=== PATIENT | female | born 1950 | race Caucasian/White ===

== ENCOUNTER 2023-11-21 12:33 | Outpatient (REF) | payer MEDICARE, SELFPAY ==
--- NOTE | ~2023-11-21 | XR_ITS ---
EXAMINATION: ORBITAL FOREIGN BODY SCREENING CLINICAL INFORMATION: Pre-MRI screening. COMPARISON: None. TECHNIQUE: Three views of the orbits were obtained. FINDINGS: Three views demonstrate no radiopaque foreign bodies. XR/XR pre mri screening IMPRESSION: No metallic foreign body identified. Electronically signed by: Kg Mercado MD 11/21/2023 02:16 PM EDT RP
--- NOTE | ~2023-11-21 | MR_ITS ---
EXAMINATION: MR BRAIN WITHOUT CONTRAST CLINICAL INFORMATION: Mild cognitive impairment, speech impairment COMPARISON: None TECHNIQUE: Multiplanar multisequence MR imaging of the brain was obtained without intravenous contrast. FINDINGS: There is no acute infarct on diffusion-weighted imaging. There is no intracranial hemorrhage on iron-sensitive imaging. No extra-axial collection or mass effect/herniation. Scattered periventricular and deep white matter T2 FLAIR hyperintensities consistent with mild underlying microangiopathy. No hydrocephalus. Mild age-appropriate generalized cerebral volume loss with commensurate sulcal and ventricular prominence. The major flow voids at the skull base are preserved. The midline structures are normal. The cerebellar tonsils are normally positioned. The craniocervical junction is normal. Marrow signal is within normal limits. The visualized soft tissues are without significant abnormality. Opacification of the right sphenoid sinus and small layering fluid in the right maxillary and left sphenoid sinus. 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 Otherwise unremarkable noncontrast MRI of the brain. Electronically signed by: Jose Lyn MD 12/07/2023 12:41 PM EDT
== END 2023-11-21 12:34 | disposition home or self-care (01) ==
LOC: HO.MRI 12:33
PROVIDERS: PCP Internal Medicine; Visit Provider Psychiatry & Neurology Neurology
DX: G31.84 Mild cognitive impairment of uncertain or unknown etiology (principal)
CPT/HCPCS: 70551